=== PATIENT | male | born 1980 | race Caucasian/White ===

== ENCOUNTER 2017-12-14 18:46 | Emergency (ER) | payer BC ==
--- NOTE | 2017-12-14 20:16 | EDM.PDOC ---
ED HPI GENERAL MEDICAL PROBLEM - General Chief Complaint: Fever Stated Complaint: COUGH,FEVER,ACHY Time Seen by Provider: 12/14/17 19:55 Source of Information: Reports: Patient History Limitations: Reports: No Limitations - History of Present Illness INITIAL COMMENTS - FREE TEXT/NARRATIVE: John presents today for complaints of sudden onset fever, chills, joint pain for 24 hours. He denies nausea, headache. He has not taken any OTC medication to help his pain. general body aches Pain Score (Numeric/FACES): 4 - Related Data Allergies Allergy/AdvReac Type Severity Reaction Status Date / Time No Known Allergies Allergy Verified 12/14/17 19:18 Home Meds: Home Meds NK [No Known Home Meds] 12/14/17 [History] Past Medical History - Past Health History Medical/Surgical History: Denies Medical/Surgical History ED ROS GENERAL - Review of Systems Review Of Systems: See Below Constitutional: Reports: Fever, Chills, Other (joint pain). Denies: Malaise, Weakness HEENT: Denies: Ear Pain, Rhinitis, Throat Pain, Throat Swelling Respiratory: Reports: Cough, Other (He complains of infrequent dry cough). Denies: Shortness of Breath, Wheezing, Pleuritic Chest Pain, Sputum, Hemoptysis Cardiovascular: Reports: No Symptoms Endocrine: Reports: No Symptoms GI/Abdominal: Reports: No Symptoms : Reports: No Symptoms Musculoskeletal: Reports: Joint Pain Skin: Denies: Bruising, Pruritis, Rash, Erythema, Wound, Lesions Neurological: Reports: No Symptoms Psychiatric: Reports: No Symptoms Hematologic/Lymphatic: Reports: No Symptoms Immunologic: Reports: No Symptoms ED EXAM, GENERAL - Physical Exam Exam: See Below Free Text/Narrative:: John presents today for sudden onset of fever, chills and joint pain for 24 hours. Exam Limited By: No Limitations General Appearance: Alert, WD/WN, Mild Distress Eye Exam: Bilateral Eye: EOMI, Normal Inspection, PERRL Ears: Normal External Exam, Normal Canal, Hearing Grossly Normal, Normal TMs Ear Exam: Bilateral Ear: Auricle Normal, Canal Normal, TM normal Nose: Normal Inspection, Normal Mucosa, No Blood Throat/Mouth: Normal Lips, Normal Teeth, Normal Gums, Normal Voice, No Airway Compromise, Inflammation, Other (white exudate to bilateral tonsils) Head: Atraumatic, Normocephalic Neck: Normal Inspection, Supple, Non-Tender, Full Range of Motion. No: Lymphadenopathy (R), Lymphadenopathy (L) Respiratory/Chest: No Respiratory Distress, Lungs Clear, Normal Breath Sounds, No Accessory Muscle Use, Chest Non-Tender Cardiovascular: Normal Peripheral Pulses, Regular Rate, Rhythm, No Edema, No Murmur, No Rub Peripheral Pulses: 2+: Radial (L), Radial (R) Back Exam: Normal Inspection, Full Range of Motion. No: CVA Tenderness (R), CVA Tenderness (L) Extremities: Normal Inspection, Normal Range of Motion, Non-Tender, No Pedal Edema, Normal Capillary Refill Neurological: Alert, Oriented, CN II-XII Intact, Normal Cognition, Normal Gait, Normal Reflexes, No Motor/Sensory Deficits Psychiatric: Normal Affect, Normal Mood Skin Exam: Dry, Intact, No Rash, Diaphoretic, Increased Warmth. No: Ecchymosis , Erythema, Pallor, Petechiae, Rash Lymphatic: No Adenopathy Course - Vital Signs Last Recorded V/S: Last Vital Signs Temp 37.3 C 12/14/17 19:21 Pulse 96 12/14/17 19:21 Resp 14 12/14/17 19:21 BP 118/84 12/14/17 19:21 Pulse Ox 96 12/14/17 19:21 - Orders/Labs/Meds Orders: Active Orders 24 hr Category Date Time Status CULTURE STREP A CONFIRMATION [] Stat Lab 12/14/17 20:05 Results INFLUENZA A+B AG SCREEN [] Stat Lab 12/14/17 20:27 Ordered LYME (B. BURGDORFERI) PCR Stat Lab 12/14/17 21:19 Received LYME, TOTAL AB TEST/REFLEX Stat Lab 12/14/17 21:19 Received STREP SCRN A RAPID W CULT CONF [] Stat Lab 12/14/17 20:05 Results Labs: Laboratory Tests 12/14/17 12/14/17 Range/Units 20:05 20:05 WBC 8.7 (4.5-11.0) K/uL RBC 5.53 (4.30-5.90) M/uL Hgb 15.9 H (12.0-15.0) g/dL Hct 47.6 (40.0-54.0) % MCV 86 (80-98) fL MCH 29 (27-31) pg MCHC 33 (32-36) % Plt Count 237 (150-400) K/uL Neut % (Auto) 79 H (36-66) % Lymph % (Auto) 10 L (24-44) % [place] % (Auto) 11 H (2-6) % Eos % (Auto) 0 L (2-4) % Baso % (Auto) 1 (0-1) % Sodium 137 L (140-148) mmol/L Potassium 3.7 (3.6-5.2) mmol/L Chloride 102 (100-108) mmol/L Carbon Dioxide 23 (21-32) mmol/L Anion Gap 15.7 H (5.0-14.0) mmol/L BUN 17 (7-18) mg/dL Creatinine 1.4 H (0.8-1.3) mg/dL Est Cr Clr Drug Dosing 75.45 mL/min Estimated GFR (MDRD) 56 L (>60) Glucose 105 (74-106) mg/dL Calcium 9.0 (8.5-10.1) mg/dL Patient lab work reviewed, Patient dehydrated. Strep screen negative Influenza screen negative Departure - Departure Time of Disposition: 21:19 Disposition: Home, Self-Care 01 Condition: Good Clinical Impression: Viral illness - Discharge Information Instructions: Viral Illness, Adult Referrals: PCP,None [Primary Care Provider] - Forms: ED Department Discharge Additional Instructions: You have been evaluated and treated for viral illness, fever and joint pain. Your lab work does not show any acute signs of infection. Lymes testing is pending. Your renal function shows signs of dehydration. Take ibuprofen 800mg by mouth three times a day for pain/fever. You can also take acetaminophen 1000mg by mouth three times a day for pain/ fever. Push oral fluids to stay hydrated. It would be best for you to follow up with a primary provider in 7 to 10 days for a recheck. If you get worse, have increased fever, chills, nausea, vomiting or other concerns return to the emergency room. - My Orders Last 24 Hours: My Active Orders 12/14/17 20:05 CULTURE STREP A CONFIRMATION [RM] Stat STREP SCRN A RAPID W CULT CONF [RM] Stat 12/14/17 20:27 INFLUENZA A+B AG SCREEN [RM] Stat 12/14/17 21:19 LYME (B. BURGDORFERI) PCR Stat LYME, TOTAL AB TEST/REFLEX Stat - Assessment/Plan Last 24 Hours: My Active Orders 12/14/17 20:05 CULTURE STREP A CONFIRMATION [RM] Stat STREP SCRN A RAPID W CULT CONF [RM] Stat 12/14/17 20:27 INFLUENZA A+B AG SCREEN [RM] Stat 12/14/17 21:19 LYME (B. BURGDORFERI) PCR Stat LYME, TOTAL AB TEST/REFLEX Stat Assessment:: Viral illness Plan: Patient evaluated and treated for viral illness, fever and joint pain. Lab work does not show any acute signs of infection. Lymes testing is pending. Renal function shows signs of dehydration. Take ibuprofen 800mg by mouth three times a day for pain/fever. He can also take acetaminophen 1000mg by mouth three times a day for pain/fever. Push oral fluids to stay hydrated. It would be best for him to follow up with a primary provider in 7 to 10 days for a recheck. If he feels he is getting worse, has increased fever, chills, nausea, vomiting or other concerns return to the emergency room. Patient verbalized understanding, all his questions were answered.
== END 2017-12-14 21:29 | disposition home or self-care (01) ==
LOC: JP.ED 18:46
DX: B34.9 Viral infection, unspecified (principal)
CPT/HCPCS: 36415; 80048; 85025; 87081; 87430; 87476; 87804; 87804-59; 99284